=== PATIENT | female | born 1995 | race Caucasian/White ===

== ENCOUNTER 2017-09-04 18:40 | Emergency (ER) | payer MEDICAID ==
[2017-09-04 18:55] VITALS: BP 118/73; PULSE 85; RESP 16; TEMP 98.7; O2SAT 98
--- NOTE | 2017-09-04 19:43 | ED PDOC ---
HPI: Dental Pain/Injury Time Seen by Provider: 09/04/17 18:54 Chief Complaint (Nursing): Dental Pain Chief Complaint (Provider): Dental Pain History Per: Patient History/Exam Limitations: no limitations Onset/Duration Of Symptoms: Hrs Current Symptoms Are (Timing): Still Present Quality: "Pain" Additional Complaint(s): 21 year old female presents to the ED reporting of pain to the left lower tooth. Patient reports that wisdom tooth is erupting in that area. Patient has taken tylenol but has had no relief. Additionaly, patient has seen dentist and has had an x-ray done. Patient was told that the wisdom tooth would have to be removed. Patient is currently waiting for insurance to cover. Otherwise: (-) fever, (-) headache, (-) sore throat, (-) throat swelling, (-) difficulty swallowing. Past Medical History Reviewed: Historical Data, Nursing Documentation, Vital Signs Vital Signs: Last Vital Signs Temp 98.7 F 09/04/17 18:53 Pulse 85 09/04/17 18:53 Resp 16 09/04/17 18:53 BP 118/73 09/04/17 18:53 Pulse Ox 98 09/04/17 18:53 - Medical History PMH: Anemia, Asthma - Surgical History Surgical History: No Surg Hx - Family History Family History: States: Unknown Family Hx - Immunization History Hx Tetanus Toxoid Vaccination: Yes Hx Influenza Vaccination: Yes Hx Pneumococcal Vaccination: No - Home Medications Home Medications: Ambulatory Orders Medication Instructions Recorded DiphenhydrAMINE [Benadryl] 25 mg PO Q4H #30 cap 02/03/16 Erythromycin 0.5% [Ilytocin] 3.5 gm OP BID #1 tube 02/03/16 Ibuprofen [Motrin Tab] 600 mg PO QID PRN #30 tab 09/04/17 - Allergies Allergies/Adverse Reactions: Allergies Allergy/AdvReac Type Severity Reaction Status Date / Time amoxicillin Allergy Verified 02/03/16 04:42 Penicillins Allergy Verified 02/03/16 04:42 Review of Systems ROS Statement: Except As Marked, All Systems Reviewed And Found Negative ENT: Positive for: Mouth Pain (pain to left lower tooth, wisdom tooth erupting. ) Physical Exam - Reviewed Nursing Documentation Reviewed: Yes Vital Signs Reviewed: Yes - Physical Exam Comments: GENERAL APPEARANCE: Patient is awake, alert, oriented x 3, in no acute distress. SKIN: Warm, dry; (-) cyanosis. ENMT: (-) sinus swelling or tenderness, (+) tooth tenderness to percussion of the L bottom wisdom tooth, (-) gingival swelling, edema, and erythema, (-) fluctuance. Pharynx: (-) tongue elevation, (-) exudate. Airway patent: (-) stridor. (-) Submandibular or submental neck swelling. NECK: (-) tenderness, (-) crepitus. - ECG O2 Sat by Pulse Oximetry: 98 (RA) Pulse Ox Interpretation: Normal Medical Decision Making Medical Decision Making: Time: 1938 Plan: -- Motrin 600 mg PO Advised to follow up with the dentist in 1-2 days without fail. Advised to take medication as prescribed. Return to the emergency room at any time for any new or worsening symptoms. Patient states she fully agrees with and understands discharge instructions. States that she agrees with the plan and disposition. Verbalized and repeated discharge instructions and plan. I have given the patient opportunity to ask any additional questions. Scribe Attestation: Documented by Carmelo St, acting as a scribe for Cari Pope PA-C. Provider Scribe Attestation: All medical record entries made by the Scribe were at my direction and personally dictated by me. I have reviewed the chart and agree that the record accurately reflects my personal performance of the history, physical exam, medical decision making, and the department course for this patient. I have also personally directed, reviewed, and agree with the discharge instructions and disposition. Disposition - Clinical Impression Clinical Impression: Toothache - Disposition Disposition: Routine/Home Disposition Time: 19:42 Condition: STABLE Additional Instructions: Thank you for letting us take care of you today. You were treated for toothache , eruption of wisdom tooth. The emergency medical care you received today was directed at your acute symptoms. Take [id number] ibuprofen or Motrin as needed for pain, take with food. It may take several days for your symptoms to resolve. Return to the Emergency Department if your symptoms worsen, do not improve, or if you have any other problems. Please contact your dentist in 2 days for re-evaluation and follow up. Bring any paperwork you were given at discharge with you along with any medications you are taking to your follow up visit. Our treatment cannot replace ongoing medical care by a primary care provider (PCP) outside of the emergency department. Thank you for allowing the [facility] team to be part of your care today. Prescriptions: Ibuprofen [Motrin Tab] 600 mg PO QID PRN #30 tab PRN Reason: Pain, Moderate (4-7) Instructions: Dental Pain (DC) Forms: [employer] (Lithuanian) - PA / HVAC TECH / Resident Statement MD/DO has reviewed & agrees with the documentation as recorded.
== END 2017-09-04 19:52 | disposition home or self-care (01) ==
LOC: H.ER 18:40
DX: K08.89 Other specified disorders of teeth and supporting structures (principal); J45.909 Unspecified asthma, uncomplicated; Z88.0 Allergy status to penicillin